=== PATIENT | male | born 1965 | race Caucasian/White ===

== ENCOUNTER 2017-11-16 10:53 | Emergency (ER) | payer BC, OTHER ==
[~2017-11-16] VITALS: Ht 177.8 cm; Wt 63.5 kg
[2017-11-16] MEDS ORDERED: FAMOTIDINE 20 MG TABLET PO ONE (11:15)
[2017-11-16] MEDS ORDERED: MAG HYDROX/AL HYDROX/SIMETH 30 ML LIQUID UDC PO ONE ×2 (11:15→12:15)
[2017-11-16] MEDS ORDERED: ACETAMINOPHEN 325 MG TABLET PO ONE (11:15)
[2017-11-16] MEDS ORDERED: LIDOCAINE VISCUS 2% 15 ML UDC MM ONE (11:15)
[2017-11-16] MEDS ORDERED: VALIUM PO (11:17)
[2017-11-16] MEDS ORDERED: MYLANTA PO (11:17)
[2017-11-16] MEDS ORDERED: VALTREX (11:17)
[2017-11-16] MEDS ORDERED: FAMOTIDINE 20 MG TABLET ONE ×2 (11:18→11:32)
[2017-11-16] MEDS ORDERED: MAG HYDROX/AL HYDROX/SIMETH 30 ML LIQUID UDC ONE ×2 (11:18→12:23)
[2017-11-16] MEDS ORDERED: ACETAMINOPHEN 325 MG TABLET ONE (11:18)
[2017-11-16] MEDS ORDERED: LIDOCAINE VISCUS 2% 15 ML UDC ONE (11:19)
[2017-11-16] MEDS ORDERED: FAMOTIDINE. 20 MG/2 ML VIAL IV ONE ×2 (11:30→11:33)
[2017-11-16 11:51] LABS: BASOPHILS % (AUTO) 0.5 % (0.0-2.0); CREATININE 0.7 mg/dL (0.6-1.3); EOSINOPHILS # (AUTO) 0.1 K/uL (0.0-0.7); HEMATOCRIT 37.6 % (36.7-47.1); HEMOGLOBIN 12.9 g/dL (12.5-16.3); LYMPHOCYTES # (AUTO) 2.2 K/uL (20.0-40.0); LYMPHOCYTES % (AUTO) 30.1 % (20.5-51.5); MEAN CORPUSCULAR HEMOGLOBIN 32.3 uug (23.8-33.4); MEAN CORPUSCULAR HGB CONC 34 g/dL (32.5-36.3); MEAN CORPUSCULAR VOLUME 94.5 fL (73.0-96.2); MONOCYTES # (AUTO) 0.6 K/uL (2.0-10.0); NEUTROPHILS # (AUTO) 4.4 K/uL (1.8-8.9); NEUTROPHILS % (AUTO) 60.4 % (38.5-71.5); PLATELET COUNT (AUTO) 193 K/uL (152-348); POTASSIUM 3.4 mmol/L (3.5-5.1); RED BLOOD CELL COUNT(AUTO) 3.98 MIL/uL (4.06-5.63); WHITE BLOOD COUNT (AUTO) 7.2 K/uL (3.6-10.2)
[2017-11-16 11:57] LABS: BILIRUBIN,DIRECT 0.1 mg/dL (0.0-0.2); BILIRUBIN,TOTAL 0.6 mg/dL (0.2-1.0); TOTAL PROTEIN, SERUM 5.8 g/dL (6.4-8.2)
[2017-11-16] MEDS ORDERED: MORPHINE SULFATE 4 MG/1 ML DISP.SYRIN IV ONE (12:15)
[2017-11-16] MEDS ORDERED: MORPHINE SULFATE 4 MG/1 ML DISP.SYRIN ONE (12:23)
[2017-11-16] MEDS ORDERED: IV NORMAL SALINE 100 ML ONE (12:56)
[2017-11-16] MEDS ORDERED: IOHEXOL 300MG/ML 100 ML INFUS..BTL ONE (12:56)
--- NOTE | 2017-11-16 13:07 | NUR ---
pt refused ct scan. informed
--- NOTE | 2017-11-16 13:20 | NUR ---
pt says that the abdominal pain subsided and he feels better and wants to go home.
--- NOTE | 2017-11-16 13:24 | NUR ---
Patient discharged to home in stable conditon. Written and verbal after care instructions given. Patient verbalizes understanding of instructions.pt walks in steady gait. win gusman pain,n/v. pt not driving.
[2017-11-16 13:33] VITALS: BP 121/71
== END 2017-11-16 13:20 | disposition home or self-care (01) ==
LOC: ER 10:53
DX: R10.13 Epigastric pain (principal); K21.9 Gastro-esophageal reflux disease without esophagitis; Z79.899 Other long term (current) drug therapy
CPT/HCPCS: 36415; 70030-TC; 71045; 83690; 85025; 93005; A4663; J2270; J3490; J7030; Q9967